=== PATIENT | male | born 1990 | race Two or more races ===

== ENCOUNTER 2018-12-02 12:37 | Emergency (ER) | payer MEDICAID ==
[~2018-12-02] VITALS: Ht 177.8 cm; Wt 62.1 kg
[2018-12-02] MEDS ORDERED: TDAP [DIPH/PERTUSSIS/TET] 0.5 ML VIAL IM ONE ×2 (13:30→14:38)
[2018-12-02] MEDS ORDERED: LIDOCAINE 1% INJ 50 ML MDV IJ ONE (13:30)
--- NOTE | 2018-12-02 14:20 | NUR ---
PT PRESENTED TO THE ER WITH A LT THUMB LACERATION. ACTIVE BLEEDING NOTED. OPEN TO AIR. APPROX 2 CM. SUTURE SET UP IS AT THE BEDSIDE.
[2018-12-02] MEDS ORDERED: LIDOCAINE HCL/MPF 1% 30 ML VIAL IJ ONE (14:27)
--- NOTE | 2018-12-02 14:30 | NUR ---
PT REC'D TDAP.
--- NOTE | 2018-12-02 15:30 | NUR ---
XRAY IN PROGRESS AT THE BEDSIDE.
--- NOTE | 2018-12-02 17:00 | NUR ---
XRAY IN PROGRESS AT THE BEDSIDE.
[2018-12-02 18:05] VITALS: BP 128/72
--- NOTE | 2018-12-02 18:05 | NUR ---
DRSG PLACED ON PT'S LT THUMB. WOUND CHECK IN 2 DAYS, SUTURE REMOVAL IN 7-10 DAYS. Patient discharged to home in stable condition. Written and verbal after care instructions given. Patient verbalizes understanding of instruction AND RX. PT AMBULATED OUT WITH A STEADY GAIT.
== END 2018-12-02 18:05 | disposition home or self-care (01) ==
LOC: ER 12:50
DX: S61.022A Laceration with foreign body of left thumb without damage to nail, initial encounter (principal); F17.200 Nicotine dependence, unspecified, uncomplicated; Z60.2 Problems related to living alone; Z23 Encounter for immunization; W01.198A Fall on same level from slipping, tripping and stumbling with subsequent striking against other object, initial encounter; Y93.89 Activity, other specified; Y92.89 Other specified places as the place of occurrence of the external cause; Y99.8 Other external cause status
CPT/HCPCS: 12001; 73130 ×3; 90471; 90715; 99283; A4606; A6402 ×2; J3490